=== PATIENT | female | born 1980 | race Hispanic/Latino ===

== ENCOUNTER 2016-12-15 08:51 | Outpatient (CLI) | payer OTHER ==
[2016-12-15 10:23] LABS: #Basophils 0.1 thou/uL (0.0-0.2); #Eosinphils 0.1 thou/uL (0.0-0.7); #Lymphocytes 1.6 thou/uL (1.20-3.40); #Monocytes 0.7 thou/uL (0.11-0.59); #Neutrophils 10.3 thou/uL (1.40-6.50); %Basophils 0.4 % (0.0-1.0); %Lymphocytes 12.5 % (21.0-51.0); %Monocytes 5.1 % (0.0-10.0); Hemoglobin 10.1 g/dL (12.0-16.0); MDiff Complete? YES; Mean Corpuscular HGB CONC 31.3 g/dL (32.0-36.0); Mean Corpuscular Hemoglobin 23.5 pg (27.0-31.0); Mean Platelet Volume 9.9 fL (7.4-10.4); Microcytosis SLIGHT = 6-15 cells (100X) (0-5/hpf); Ovalocytes SLIGHT = 2-5 cells (100X) (0-1/hpf); PLT Morphology Comment Appears Adequate; Platelet Count 289 thou/uL (130-400); RBC Distribution Width 21.9 % (11.5-14.5); Tear Drops SLIGHT = 2-5 cells (100X) (0-1/hpf); White Blood Cell (WBC) Count 12.7 thou/uL (4.8-10.8)
[2016-12-15 13:26] LABS: Amphetamine Not Detected (NotDetected); Barbiturates Screen Not Detected (NotDetected); Benzodiazepine Screen Not Detected (NotDetected); Cocaine Metabolite Screen Not Detected (NotDetected); Medtox Control Line Valid? VALID (VALID); Methadone Not Detected (NotDetected); Methamphetamine Not Detected (NotDetected); Opiate Screen Not Detected (NotDetected); Oxycodone Screen Not Detected (NotDetected); Phencyclidine (PCP) Not Detected (NotDetected); THC/Cannabinoid Screen Not Detected (NotDetected); Tricyclic Screen Not Detected (NotDetected)
[2016-12-15 17:28] LABS: HBSAg Index 0.25 S/CO (0-0.99); HIV (1/2) Antibody/Antigen Non-Reactive (NonReactive); Hep B Surf Ag Non-Reactive S/CO (NonReactive)
[2016-12-18 18:40] LABS: Chlamydia by PCR Not Detected (NotDetected); GC by PCR Not Detected (NotDetected)
== END 2016-12-15 08:52 | disposition home or self-care (01) ==
LOC: MADLABBHPM 08:51
PROVIDERS: ATTEND Family Medicine
DX: O09.522 Supervision of elderly multigravida, second trimester (principal)
CPT/HCPCS: 36415; 80081; 80306; 87086; 87491; 87591

== ENCOUNTER 2017-02-26 08:56 | Outpatient (CLI) | payer MEDICAID, OTHER ==
[2017-02-26 10:22] LABS: #Eosinphils 0.1 thou/uL (0.0-0.7); #Lymphocytes 1.3 thou/uL (1.20-3.40); #Monocytes 0.5 thou/uL (0.11-0.59); #Neutrophils 6.8 thou/uL (1.40-6.50); %Basophils 0.5 % (0.0-1.0); %Eosinophils 1.7 % (0.0-10.0); %Lymphocytes 14.6 % (21.0-51.0); %Monocytes 5.8 % (0.0-10.0); %Neutrophils 77.4 % (42.0-75.0); Hemoglobin 9.6 g/dL (12.0-16.0); Mean Corpuscular HGB CONC 32.9 g/dL (32.0-36.0); Mean Corpuscular Hemoglobin 27.6 pg (27.0-31.0); Mean Corpuscular Volume 83.8 fl (81.0-99.0); Mean Platelet Volume 8.7 fL (7.4-10.4); Platelet Count 237 thou/uL (130-400); RBC Distribution Width 16.8 % (11.5-14.5); Red Blood Cell (RBC) Count 3.48 mill/uL (4.20-5.40); White Blood Cell (WBC) Count 8.8 thou/uL (4.8-10.8)
[2017-02-26 18:26] LABS: HIV (1/2) Antibody/Antigen Non-Reactive (NonReactive)
== END 2017-02-26 08:57 | disposition home or self-care (01) ==
LOC: MADLABBHPM 08:56
PROVIDERS: ATTEND Family Medicine
DX: O09.523 Supervision of elderly multigravida, third trimester (principal)
CPT/HCPCS: 36415; 82950; 85025; 86592; 87389

== ENCOUNTER 2017-02-28 08:19 | Outpatient (CLI) | payer OTHER | END 2017-02-28 08:20 | disposition home or self-care (01) | LOC: MADLAB 08:19 | PROVIDERS: ATTEND Family Medicine | DX: O09.523 Supervision of elderly multigravida, third trimester (principal) | CPT/HCPCS: 36415; 82951; 82952 ==

== ENCOUNTER 2017-03-23 15:22 | Outpatient (CLI) | payer OTHER | END 2017-03-23 15:23 | disposition home or self-care (01) | LOC: MADLABBHPM 15:22 | PROVIDERS: ATTEND Family Medicine | DX: O09.523 Supervision of elderly multigravida, third trimester (principal) | CPT/HCPCS: 87086 ==

== ENCOUNTER 2017-04-20 16:30 | Outpatient (CLI) | payer OTHER | END 2017-04-20 16:31 | disposition home or self-care (01) | LOC: MADLABBHPM 16:30 | PROVIDERS: ATTEND Family Medicine | DX: O09.523 Supervision of elderly multigravida, third trimester (principal) | CPT/HCPCS: 87086 ==

== ENCOUNTER 2017-05-04 16:16 | Outpatient (CLI) | payer OTHER | END 2017-05-04 16:17 | disposition home or self-care (01) | LOC: MADLABBHPM 16:16 | PROVIDERS: ATTEND Family Medicine | DX: O09.523 Supervision of elderly multigravida, third trimester (principal) | CPT/HCPCS: 87086 ==

== ENCOUNTER 2018-03-27 09:51 | Outpatient (CLI) | payer OTHER ==
[2018-03-27 11:17] LABS: #Eosinphils 0.1 thou/uL (0.0-0.7); #Lymphocytes 1.5 thou/uL (1.20-3.40); #Monocytes 0.4 thou/uL (0.11-0.59); #Neutrophils 8.2 thou/uL (1.40-6.50); %Basophils 0.4 % (0.0-1.0); %Eosinophils 0.7 % (0.0-10.0); %Lymphocytes 14.7 % (21.0-51.0); %Monocytes 3.9 % (0.0-10.0); %Neutrophils 80.4 % (42.0-75.0); Hemoglobin 10.1 g/dL (12.0-16.0); Mean Corpuscular HGB CONC 31.3 g/dL (32.0-36.0); Mean Corpuscular Hemoglobin 25.5 pg (27.0-31.0); Mean Corpuscular Volume 81.6 fl (81.0-99.0); Mean Platelet Volume 7.7 fL (7.4-10.4); Platelet Count 262 thou/uL (130-400); RBC Distribution Width 16.5 % (11.5-14.5); Red Blood Cell (RBC) Count 3.96 mill/uL (4.20-5.40); White Blood Cell (WBC) Count 10.2 thou/uL (4.8-10.8)
[2018-03-27 17:34] LABS: Syphilis Antibody Nonreactive (Nonreactive)
[2018-03-27 17:38] LABS: HIV (1/2) Antibody/Antigen Non-Reactive (NonReactive); HIV 1/2 INDEX 0.09 S/CO (<1.00)
== END 2018-03-27 09:52 | disposition home or self-care (01) ==
LOC: MADLABBHPM 09:51
PROVIDERS: ATTEND Family Medicine
DX: O09.893 Supervision of other high risk pregnancies, third trimester (principal)
CPT/HCPCS: 36415; 82950; 85025; 86780; 87389

== ENCOUNTER 2018-04-03 10:51 | Outpatient (CLI) | payer OTHER | END 2018-04-03 10:52 | disposition home or self-care (01) | LOC: MADLABBHPM 10:51 | PROVIDERS: ATTEND Family Medicine | DX: O09.523 Supervision of elderly multigravida, third trimester (principal) | CPT/HCPCS: 36415; 82951; 82952 ==

== ENCOUNTER 2021-08-11 19:08 | Emergency (ER) | payer OTHER, SELFPAY ==
[~2021-08-11 19:08] MED LIST: Sodium Chloride 0.9% 100 ML BAG ONE
[2021-08-11] MEDS ORDERED: Iopamidol 370 76% 125 ML VIAL FS ONE (19:09)
[2021-08-11] MEDS ORDERED: Ibuprofen 800 MG TAB ONE (19:38)
[2021-08-11] MEDS ORDERED: Sodium Chloride 0.9% 1,000 ML ONE ×2 (19:38→20:57)
[2021-08-11 20:03] LABS: #Basophils 0.1 thou/uL (0.0-0.2); #Lymphocytes 0.7 thou/uL (1.20-3.40); #Monocytes 0.9 thou/uL (0.11-0.59); #Neutrophils 4.9 thou/uL (1.40-6.50); %Basophils 1.1 % (0.0-1.0); %Eosinophils 0.7 % (0.0-10.0); %Lymphocytes 11.3 % (21.0-51.0); %Monocytes 12.9 % (0.0-10.0); Hemoglobin 10.1 g/dL (12.0-16.0); Mean Corpuscular HGB CONC 32.3 g/dL (32.0-36.0); Mean Corpuscular Hemoglobin 32.6 pg (27.0-31.0); Mean Corpuscular Volume 101.1 fL (78.0-98.0); Mean Platelet Volume 6.7 fL (7.4-10.4); Platelet Count 268 thou/uL (130-400); RBC Distribution Width 13.7 % (11.5-14.5); Red Blood Cell (RBC) Count 3.08 mill/uL (4.20-5.40); White Blood Cell (WBC) Count 6.6 thou/uL (4.8-10.8)
[2021-08-11 20:22] LABS: ALT (SGPT) 17 U/L (8-55); AST (SGOT) 23 U/L (5-34); Albumin 3.5 g/dL (3.5-5.0); Alkaline Phosphatase 76 U/L (40-110); Anion Gap 16 mmol/L (10-20); BUN (Urea Nitrogen) 9 mg/dL (7.0-18.7); Bilirubin, Total 0.2 mg/dL (0.2-1.2); Calc. Creatinine Clearance 0 mL/min (70-130); Calcium 9.5 mg/dL (7.8-10.44); Carbon Dioxide 22 mmol/L (22-29); Chloride 103 mmol/L (98-107); Globulin 3.1 g/dL (2.4-3.5); Glucose 98 mg/dL (70-105); Potassium 3.3 mmol/L (3.5-5.1); Protein, Total 6.6 g/dL (6.0-8.3); Sodium 138 mmol/L (136-145)
[2021-08-11 20:39] LABS: CKMB 0.4 ng/mL (0-6.6)
[2021-08-11 22:10] LABS: Bilirubin Negative (Negative); Blood, Urine Negative (Negative); Clarity Clear (Clear); Glucose, Urine (Dipstick) Negative (Negative); Ketone, Urine Negative (Negative); Leukocyte Negative (Negative); Nitrite Negative (Negative); Protein, Urine (Dipstick) 100 mg/dL (Neg-Trace); Urobilinogen 0.2 mg/dL (Less than 2); pH, Urine 5.5 (5.0-9.0)
[2021-08-11 22:11] LABS: RBC/HPF None Seen HPF (0-3); Specific Gravity, Urine 1.005 (1.002-1.036); WBC/HPF 0-3 HPF (0-3)
[2021-08-11 23:26] LABS: Troponin I 0.043 ng/mL (< 0.028)
== END 2021-08-12 00:33 | disposition home or self-care (01) ==
LOC: MADERS 19:08
DX: R00.0 Tachycardia, unspecified (principal); R91.8 Other nonspecific abnormal finding of lung field; R79.89 Other specified abnormal findings of blood chemistry; R74.8 Abnormal levels of other serum enzymes; Z20.822 Contact with and (suspected) exposure to COVID-19; Z85.3 Personal history of malignant neoplasm of breast
CPT/HCPCS: 71046; 71275; 81003; 81015; 82553; 83605; 84484; 87804; 93005; 94760; J3490; J7050; Q9967

== ENCOUNTER 2022-09-06 10:03 | Emergency (ER) | payer MEDICAID ==
[2022-09-06] MEDS ORDERED: Dexamethasone 10 MG/ML VIAL ONE (11:38)
[2022-09-06] MEDS ORDERED: Acetaminophen 500 MG TAB ONE (11:45)
[2022-09-06] MEDS ORDERED: Sodium Chloride 0.9% 1,000 ML ONE (11:45)
[2022-09-06 12:10] LABS: #Lymphocytes 0.9 thou/uL (1.20-3.40); #Monocytes 0.3 thou/uL (0.11-0.59); #Neutrophils 4.6 thou/uL (1.40-6.50); %Basophils 0.3 % (0.0-1.0); %Eosinophils 0.1 % (0.0-10.0); %Lymphocytes 14.6 % (21.0-51.0); %Monocytes 5.9 % (0.0-10.0); %Neutrophils 79.2 % (42.0-75.0); Hemoglobin 12.2 g/dL (12.0-16.0); Mean Corpuscular HGB CONC 32.6 g/dL (32.0-36.0); Mean Corpuscular Hemoglobin 29.7 pg (27.0-31.0); Mean Corpuscular Volume 91.1 fl (78.0-98.0); Mean Platelet Volume 7.7 fL (7.4-10.4); Platelet Count 119 thou/uL (130-400); RBC Distribution Width 15.4 % (11.5-14.5); Red Blood Cell (RBC) Count 4.12 mill/uL (4.20-5.40); White Blood Cell (WBC) Count 5.8 thou/uL (4.8-10.8)
[2022-09-06 12:14] LABS: INR-International Normal Ratio 0.9; Prothrombin Time 12.1 sec (12.0-14.7)
[2022-09-06 13:02] LABS: Pregnancy Test - Urine (BHCG) Negative (Negative); Pregu Control Background? CLEAR/WHITE (CLR/WHITE); Pregu Control Bar Appear? YES (CONTROL BAR); Specific Gravity 1.012 (1.002-1.036)
[2022-09-06] MEDS ORDERED: levETIRAcetam 500 MG TAB ONE (13:04)
[2022-09-06 13:32] LABS: Platelet Morphology Comment Appears Decreased
[2022-09-06 13:35] LABS: PTT Less than 17.0 sec (22.9-36.1)
== END 2022-09-06 14:00 | disposition home or self-care (01) ==
LOC: MADERS 10:03
DX: G93.6 Cerebral edema (principal); G40.89 Other seizures; R29.818 Other symptoms and signs involving the nervous system; R53.1 Weakness
CPT/HCPCS: 70450; 81025; 85025; 85610; 85730; 93005; 94760; 96374; J1100; J7050

== ENCOUNTER 2022-10-01 18:43 | Emergency (ER) | payer MEDICAID ==
[2022-10-01] MEDS ORDERED: Dexamethasone 10 MG/ML VIAL ONE (19:23)
[2022-10-01] MEDS ORDERED: Sodium Chloride 0.9% 1,000 ML ONE (19:23)
[2022-10-01] MEDS ORDERED: levETIRAcetam 500 MG/5 ML VIAL ONE (19:23)
[2022-10-01] MEDS ORDERED: Sodium Chloride 0.9% 100 ML ONE (19:25)
[2022-10-01 19:59] LABS: #Lymphocytes 0.8 thou/uL (1.20-3.40); #Monocytes 0.4 thou/uL (0.11-0.59); #Neutrophils 4.1 thou/uL (1.40-6.50); %Basophils 0.5 % (0.0-1.0); %Eosinophils 0.1 % (0.0-10.0); %Lymphocytes 14.3 % (21.0-51.0); %Monocytes 7.4 % (0.0-10.0); %Neutrophils 77.7 % (42.0-75.0); Hemoglobin 12.3 g/dL (12.0-16.0); Mean Corpuscular HGB CONC 33.6 g/dL (32.0-36.0); Mean Corpuscular Hemoglobin 30.7 pg (27.0-31.0); Mean Corpuscular Volume 91.4 fl (78.0-98.0); Mean Platelet Volume 7.1 fL (7.4-10.4); Platelet Count 145 10x3/uL (130-400); RBC Distribution Width 16.1 % (11.5-14.5); Red Blood Cell (RBC) Count 4.03 mill/uL (4.20-5.40); White Blood Cell (WBC) Count 5.3 10x3/uL (4.8-10.8)
[2022-10-01 20:16] LABS: ALT (SGPT) 100 U/L (8-55); AST (SGOT) 40 U/L (5-34); Albumin 3.2 g/dL (3.5-5.0); Alkaline Phosphatase 100 U/L (40-110); Anion Gap 14 mmol/L (10-20); BUN (Urea Nitrogen) 38 mg/dL (7.0-18.7); Bilirubin, Total 0.3 mg/dL (0.2-1.2); Calc. Creatinine Clearance 0 mL/min (70-130); Calcium 8.9 mg/dL (7.8-10.44); Carbon Dioxide 27 mmol/L (22-29); Chloride 106 mmol/L (98-107); Estimated GFR 71; Globulin 2.9 g/dL (2.4-3.5); Glucose 143 mg/dL (70-105); Potassium 3.7 mmol/L (3.5-5.1); Protein, Total 6.1 g/dL (6.0-8.3); Sodium 143 mmol/L (136-145)
== END 2022-10-01 21:43 | disposition home or self-care (01) ==
LOC: MADERS 18:43
DX: R56.9 Unspecified convulsions (principal); C71.9 Malignant neoplasm of brain, unspecified; R60.9 Edema, unspecified; E66.9 Obesity, unspecified
CPT/HCPCS: 70450; 80053; 84146; 85025; 96365; 96375; J1100; J1953; J7050